=== PATIENT | female | born 1975 | race Two or more races ===

== ENCOUNTER 2022-11-02 09:01 | Outpatient (CLI) | payer OTHER | END 2022-11-02 09:05 | disposition home or self-care (01) | LOC: SONOGRAMA 09:01 | PROVIDERS: ATTEND Pathology Anatomic Pathology & Clinical Pathology | DX: D44.0 Neoplasm of uncertain behavior of thyroid gland (principal); E07.9 Disorder of thyroid, unspecified ==

== ENCOUNTER 2024-03-07 07:51 | Outpatient (CLI) | payer OTHER | END 2024-03-07 08:09 | disposition home or self-care (01) | LOC: TOM 07:51 | DX: Z12.11 Encounter for screening for malignant neoplasm of colon (principal) ==